=== PATIENT | male | born 1990 | race Two or more races ===

== ENCOUNTER 2023-02-25 15:49 | Inpatient (IN) | payer OTHER ==
[~2023-02-25] VITALS: Ht 165.1 cm; Wt 157.9 kg
[2023-02-25] MEDS ORDERED: DOVATO 50-3001 EACH PO (16:02)
[2023-02-25] MEDS ORDERED: PROTONIX40 M1 PO (16:02)
== END 2023-02-27 14:56 | disposition home or self-care (01) | DRG 342 ==
LOC: ER 15:49 → MEDJ 23:53 → SURG 02-26 10:17
PROVIDERS: Surgery; ADMIT Specialist; ATTEND Specialist
PROC: BW21YZZ Computerized Tomography (CT Scan) of Abdomen and Pelvis using Other Contrast (ICD-10-PCS; 2023-02-25)
PROC: 0DTJ4ZZ Resection of Appendix, Percutaneous Endoscopic Approach (ICD-10-PCS; principal; 2023-02-26 06:00)
DX: K35.890 Other acute appendicitis without perforation or gangrene (principal); B20 Human immunodeficiency virus [HIV] disease; Z20.822 Contact with and (suspected) exposure to COVID-19

== ENCOUNTER 2024-04-23 20:17 | Emergency (ER) | payer OTHER ==
[~2024-04-23] VITALS: Ht 165.1 cm; Wt 63.5 kg
[~2024-04-23 20:17] MED LIST: DOVATO 50-3001 EACH PO; PROTONIX40 M1 PO
[2024-04-23] MEDS ORDERED: NEXIUM2.5 MG (20:39)
[2024-04-23] MEDS ORDERED: KETOROLAC TROMETHAMINE 60 MG VIAL IM ONE (23:15)
[2024-04-23 23:45] LABS: URINE APPEARANCE Clear; URINE BILIRRUBIN Negative (NEGATIVE); URINE BLOOD Negative; URINE COLOR Yellow; URINE GLUCOSE Negative (NEGATIVE); URINE LEUKOCYTE Negative; URINE NITRATE Negative; URINE PROTEIN Negative (NEGATIVE)
[2024-04-23 23:49] LABS: URINE BACTERIA 8.8 uL (0.0-1933); URINE RBC 5.4 uL (0.0-20.8)
[2024-04-23 23:57] LABS: MEAN CELL VOLUME 87.8 fL (80.0-100.00); MEAN CORPUSCULAR HGB CONC 33.3 g/dl (32.0-36.0); PLATELET COUNT 165 K/uL (150-450); RED BLOOD COUNT 4.22 M/uL (4.00-6.00); RED CELL DISTRIBUTION WIDTH 15.8 % (11.5-14.5)
[2024-04-23 23:57] LABS: URINE KETONE 40 (NEGATIVE); URINE WBC 1.6 uL (0.0-23.2)
[2024-04-23 23:59] LABS: HEMOGLOBIN 12.3 g/dL (13-16.00); MEAN CORPUSCULAR HEMOGLOBIN 29.1 pg (27.00-32.0)
== END 2024-04-24 00:51 | disposition home or self-care (01) ==
LOC: ER 20:19
PROVIDERS: Preventive Medicine Public Health & General Preventive Medicine
DX: J06.9 Acute upper respiratory infection, unspecified (principal); B20 Human immunodeficiency virus [HIV] disease